=== PATIENT | male | born 1960 | race Caucasian/White ===

== ENCOUNTER → 2024-06-21 | Outpatient (CLI) | payer MEDICARE ==
--- NOTE | 2024-06-21 13:09 | US ---
EXAMINATION TYPE: US liver DATE OF EXAM: 06/21/2024 COMPARISON: NONE CLINICAL INDICATION: Male, 64 years old with history of R18.8 OTHER ASCITES; distention, gained 18lbs in 1 month TECHNIQUE: Multiple sonographic images of the right upper quadrant are obtained. FINDINGS: EXAM MEASUREMENTS: Liver Length: 25.3 cm Gallbladder Wall: 0.2 cm CBD: 0.6 cm Right Kidney: 11.0 x 5.8 x 6.9 cm Pancreas: wnl Liver: enlarged and very difficult to penetrate Gallbladder: fundal fold seen Evidence for sonographic Jc's sign: no CBD: wnl Right Kidney: wnl No ascites seen Visualized portions of the pancreas are unremarkable. Liver is enlarged and diffusely hyperechoic and difficult to penetrate. No ascites identified in the right upper quadrant. The gallbladder is unrema rkable with fundal fold demonstrated. No wall thickening or stranding fluid. No cholelithiasis. Negat mariam sonographic Jc's sign. Common bile duct is within normal limits. Right kidney is unremarkable without evidence for hydronephrosis, nephrolithiasis, or solid mass. IMPRESSION: 1. No ultrasound evidence for an acute process. If there is continued clinical concern, consider furt her evaluation with CT abdomen pelvis. 2. Hepatomegaly with fatty infiltration. 3. No ascites in the right upper quadrant.
== END | disposition home or self-care (01) ==
LOC: RADUSWWP 09:11
PROVIDERS: ATTEND Internal Medicine
DX: R18.8 Other ascites
CPT/HCPCS: 76705

== ENCOUNTER → 2024-07-10 | Outpatient (CLI) | payer MEDICARE ==
--- NOTE | 2024-07-10 12:17 | XR ---
EXAMINATION TYPE: XR chest 2V DATE OF EXAM: 07/10/2024 12:04 PM COMPARISON: None TECHNIQUE: XR chest 2V Frontal and lateral views of the chest. CLINICAL INDICATION:Male, 64 years old with history of R06.02 SHORTNESS OF BREATH; FINDINGS: Lungs/Pleura: There is no evidence of pleural effusion, focal consolidation, or pneumothorax. Pulmonary vascularity: Unremarkable. Heart/mediastinum: Cardiomediastinal silhouette is unremarkable. Atherosclerotic calcifications are seen in the aorta. Musculoskeletal: No acute osseous pathology. IMPRESSION: No acute cardiopulmonary disease/process. [facility], , 07/10/2024 12:14 PM
== END | disposition home or self-care (01) ==
LOC: RADXRMAIN 11:51
PROVIDERS: ATTEND Internal Medicine
DX: R06.02 Shortness of breath (principal); I70.0 Atherosclerosis of aorta
CPT/HCPCS: 71046

== ENCOUNTER → 2024-07-15 | Outpatient (CLI) | payer MEDICARE ==
[2024-07-15 14:38] LABS: African American GFR (CKD) 66 (>60 ml/min/1.73 sqM); Blood Urea Nitrogen 19 mg/dL (9-20); Non-African American GFR(CKD) 57 (>60 ml/min/1.73 sqM)
--- NOTE | 2024-07-15 16:38 | CT ---
EXAMINATION TYPE: CT abdomen pelvis w con DATE OF EXAM: 07/15/2024 COMPARISON: None HISTORY: weight gain and abdominal distention x2 months CT DLP: 2214 mGycm Automated exposure control for dose reduction was used. TECHNIQUE: Helical acquisition of images was performed from the lung bases through the pelvis. CONTRAST: Performed with Oral Contrast and with IV Contrast, patient injected with 80 mL of Isovue 370. FINDINGS: The lung bases are clear. The gallbladder is contracted but otherwise normal.. There is no biliary ductal dilatation. There is no focal mass or organomegaly involving the liver, pancreas, spleen or adrenal glands. There is marked fatty infiltration of the liver but no focal mass. There is no solid renal mass or hydronephrosis and there is homogeneous contrast enhancement of the r enal parenchyma. The caliber the abdominal aorta is normal is no retroperitoneal adenopathy or hemorr semaj. The bowel loops are normal in caliber and there is no evidence of dilatation or obstruction. No infla mmatory changes are identified in the bowel wall or mesentery. There is no free intraperitoneal air or fluid. No pelvic mass, free fluid, abscess or adenopathy. The osseous structures and soft tissues are intact. There is a left hip prosthesis. IMPRESSION: Marked steatosis with no other significant abnormality seen. [facility], , 07/15/2024 4:36 PM
== END | disposition home or self-care (01) ==
LOC: RADCTMAIN 13:40
PROVIDERS: ATTEND Internal Medicine
DX: E88.89 Other specified metabolic disorders (principal); K76.0 Fatty (change of) liver, not elsewhere classified; Z96.642 Presence of left artificial hip joint
CPT/HCPCS: 36415; 74177; 82565; 84520

== ENCOUNTER → 2024-08-21 | Outpatient (CLI) | payer MEDICARE ==
[2024-08-21 15:47] LABS: HCT 38.5 % (39.6-50.0); HGB 12.8 g/dL (13.0-17.0); MCH 32.6 pg (27.0-32.0); MCHC 33.2 g/dL (32.0-37.0); Mean Platelet Volume 8.5 FL (9.5-12.2); NRBC Per 100 WBC 0 X 10*3/uL (0.00-0.01); Platelet Count 261 X 10*3/uL (140-440); RBC 3.93 X 10*6/uL (4.40-5.60); RDW 13.2 % (11.5-14.5); WBC 7.44 X 10*3/uL (4.50-10.00)
[2024-08-21 15:58] LABS: Blood Urea Nitrogen 17.5 mg/dL (9.0-27.0); Carbon Dioxide 22.9 mmol/L (21.6-31.8); Chloride 98 mmol/L (96-109); Potassium 4.6 mmol/L (3.5-5.5); Sodium 134 mmol/L (135-145)
== END | disposition home or self-care (01) ==
LOC: LABWHC1 10:34
PROVIDERS: ATTEND Internal Medicine Interventional Cardiology
DX: Z01.812 Encounter for preprocedural laboratory examination (principal); R94.39 Abnormal result of other cardiovascular function study
CPT/HCPCS: 36415; 80051; 82565; 84520; 85027

== ENCOUNTER 2024-08-30 05:39 | Day surgery (SDC) | payer MEDICARE ==
[2024-08-28 14:35] VITALS: BMI 23.6
[2024-08-30] MEDS ORDERED: ALPRAZolam 0.25 MG TAB PO PRN (05:53)
[2024-08-30] MEDS ORDERED: ALPRAZolam 0.5 MG TAB PO PRN (05:53)
[2024-08-30] MEDS ORDERED: NITROGLYCERIN SL TABS 0.4 MG TAB SUBLINGUAL PRN (05:53)
[2024-08-30] MEDS: SODIUM CHLORIDE 0.9% 1,000 ML in EMPTY BAG 1 BAG IV SCH (06:00)
[2024-08-30] MEDS: IV FLUID CONTINUATION 1,000 ML IV ONE (06:01)
[2024-08-30 06:39] VITALS: TEMP 99.5
[2024-08-30] MEDS ORDERED: ATORVASTATIN 80 MG TAB PO ONE (07:00)
[2024-08-30] MEDS ORDERED: ASPIRIN 325 MG TAB PO ONE (07:00)
[2024-08-30] MEDS: HEPARIN SODIUM,PORCINE 10,000 UNIT in SODIUM CHLORIDE 0.9% 1,000 ML IRRIGATION PRN (07:39)
[2024-08-30] MEDS: HEPARIN SODIUM,PORCINE (1 ML) 2,500 UNIT in SODIUM CHLORIDE 0.9% 250 ML IRRIGATION PRN (07:39)
[2024-08-30] MEDS: fentaNYL (PF) 50 MCG/ML 2 ML AMP IVP ONE (07:50)
[2024-08-30] MEDS: LIDOCAINE 1% INJ 10MG/ML (20 ML MDV) SQ ONE (07:51)
[2024-08-30] MEDS: HEPARIN SODIUM 1,000 UN/ML (10ML VL) IVP ONE (07:56)
[2024-08-30] MEDS: VERAPAMIL SYRINGE (5 MG/10 ML) INTRAARTER ONE (07:56)
[2024-08-30] MEDS: IOPAMIDOL-370 100ML BTL INJ ONE (08:10)
[2024-08-30] MEDS ORDERED: RX INFO: IV CONTRAST WAS GIVEN 1 EACH MISC MISCELLANE PRN (08:20)
--- NOTE | 2024-08-30 08:25 | P.CARDCATH ---
Date of Procedure: 08/30/24 Description of Procedure: Cardiac Catheterization: The patient is a 64-year-old male with a known history of hypertension, hyperlipidemia who has been complaining of severe progressive dyspnea on exertion and had an abnormal MPI. Recommendations were made regarding cardiac catheterization, the risks and the complications were discussed with the patient who is in full understanding and agreement. Procedure Description: Patient was brought to laborer tin can in fasting semi-sedated state after receiving Fentanyl and Benadryl achieiving moderate conscious sedated state. Using Xylocaine Anesthesia and modified Seldinger technique, a 6-[place]ritrean sheath was introduced in the right radial artery . Subsequently, selective coronary angiography was performed using a 5-[place]an 3.5 bend Rakesh catheter. Multiple views of the coronary artery including hemiaxial views were obtained. The right Rakesh catheter was used to cross the aortic valve and LVEDP was calculated. Following that, catheter and sheath were removed. Hemostasis was obtained with deployment of vascular band . There was no immediate complication. Patient was returned to room in stable condition. Of note, the patient received a total of 5000 units of intravenous heparin as well as intra-arterial verapamil. Findings: Left main: This is a large size vessel, bifurcating into LAD and left circumflex, left main has no obstructive disease LAD: This is a large size vessel, reaching to the apex with a wraparound apex segment, the LAD gives rise to a proximal large diagonal branch, the LAD and its branches have no evidence of obstructive disease Left circumflex: This is a large nondominant vessel giving rise to a large obtuse marginal branch that has no evidence of obstructive disease. RCA: This is a large dominant vessel, bifurcating distally to PDA and PLV, the right coronary artery and its branches have no obstructive disease. Left Ventriculogram: Not performed Hemodynamics: There was no gradient across the aortic valve, LVEDP was 16-20 mmHg Conclusion: 1. Normal coronary arteries 2. Right dominance 3. Mildly elevated LVEDP Recommendations: At this time I see no evidence of obstructive disease to explain his symptoms. I have encouraged him to increase his physical activity and reduce his weight. The findings and the recommendations were discussed with the patient and the family and they were in full understanding and agreement. Duration of sedation is 16 minutes.
[2024-08-30] MEDS ORDERED: SODIUM CHLORIDE 0.9% 1,000 ML IV SCH (08:30)
[2024-08-30] MEDS ORDERED: LOSARTAN-HCTZ 50-12.5 MG 1 EACH TAB PO SCH (09:00)
[2024-08-30] MEDS ORDERED: LOSARTAN 25 MG TAB PO SCH (09:00)
[2024-08-30] MEDS ORDERED: METOPROLOL SUCCINATE (ER) 25 MG TAB.ER.24H PO SCH (09:00)
[2024-08-30 10:12] VITALS: RESP 16
[2024-08-30 14:12] VITALS: BP 174/71; PULSE 90
== END 2024-08-30 11:35 | disposition home or self-care (01) ==
LOC: CATHCVL 05:39
PROVIDERS: ATTEND Internal Medicine Interventional Cardiology
DX: I25.5 Ischemic cardiomyopathy (principal); I65.23 Occlusion and stenosis of bilateral carotid arteries; I73.9 Peripheral vascular disease, unspecified; I10 Essential (primary) hypertension; E78.2 Mixed hyperlipidemia; Z72.0 Tobacco use; Z79.02 Long term (current) use of antithrombotics/antiplatelets; Z79.899 Other long term (current) drug therapy
CPT/HCPCS: 93458; C1769 ×2; C1894; J1644 ×3; J2003; J3010; Q9967

== ENCOUNTER → 2024-12-19 | Outpatient (CLI) | payer MEDICARE ==
[2024-12-19 15:01] LABS: ALT 26 U/L (10-49); AST 33 U/L (14-35); Albumin 4.2 g/dL (3.8-4.9); Albumin/Globulin Ratio 1.31 Ratio (1.60-3.17); Alkaline Phosphatase 70 U/L (41-126); Blood Urea Nitrogen 22.4 mg/dL (9.0-27.0); Calcium 9.5 mg/dL (8.7-10.3); Carbon Dioxide 21.5 mmol/L (21.6-31.8); Chloride 99 mmol/L (96-109); Chol/HDL Ratio 1.97 Ratio; Globulin 3.2 g/dL (1.6-3.3); Glucose 106 mg/dL (70-110); LDL Cholesterol,Calculated 35.7 mg/dL (0.0-131.0); Potassium 4.6 mmol/L (3.5-5.5); Sodium 136 mmol/L (135-145); Total Bilirubin 0.8 mg/dL (0.3-1.2); Total Protein 7.4 g/dL (6.2-8.2)
[2024-12-19 15:54] LABS: NT-Pro-B-Type Natriuretic Pept <36 pg/mL (0-125)
== END | disposition home or self-care (01) ==
LOC: LABWHC1 09:18
PROVIDERS: ATTEND Internal Medicine Interventional Cardiology
DX: I10 Essential (primary) hypertension (principal); E78.2 Mixed hyperlipidemia; R06.02 Shortness of breath
CPT/HCPCS: 36415; 80053; 80061; 83880